=== PATIENT | female | born 2000 | race Caucasian/White ===

== ENCOUNTER 2021-03-11 10:40 | Outpatient (RCR) | payer BC, SELFPAY | END 2021-04-15 23:59 | LOC: IMMUN 10:40 | PROVIDERS: Visit Provider Family Medicine | DX: Z23 Encounter for immunization (principal) | CPT/HCPCS: 0001A; 91300 ==

== ENCOUNTER → 2022-09-29 | Outpatient (CLI) | payer BC, SELFPAY ==
[2022-09-29 15:25] LABS: Absolute Lymphocyte Count 2.58 X10^3/uL (0.83-4.51); Absolute Neutrophil Count 3.6 X10^3/uL (2.0-7.7); Basophil# 0.01 X10^3/uL; Basophil% 0.1 % (0-1); Eosinophil# 0.13 X10^3/uL; Eosinophils% 1.9 % (0-5); Hematocrit 39.8 % (37-47); Lymphocyte # 2.58 X10^3/ul (0.83-4.51); Lymphocyte % 37.3 % (19-41); Mean Corp Hgb Conc 32.7 g/dL (32-36); Mean Corpuscular Hgb 30.3 pg (27.0-32.0); Mean Corpuscular Volume 92.8 fL (81-99); Mean Platelet Vol. 10.2 fl (6.2-12.0); Monocyte# 0.56 X10^3/uL; Monocyte% 8.1 % (0-10); NRBC Flagged by Analyzer 0 % (0-5); Neutrophil # 3.63 X10^3/uL (2.7-7.7); Neutrophil % 52.5 % (47-70); Platelet Count 277 K/mm3 (150-450); RBC Distribution Width CV 13.6 % (11.6-14.6); RBC Distribution Width SD 46.7 fl (35.1-43.9); Red Blood Count 4.29 M/mm3 (4.2-5.4); White Blood Count 6.9 K/mm3 (4.4-11.0)
[2022-09-29 15:49] LABS: Erythrocyte Sedimentation Rate 13 mm/hr (0-30)
[2022-09-29 15:55] LABS: ALB/GLOB Ratio 0.9 RATIO (0.9-2.4); AST(SGOT) 22 U/L (15-37); Alanine Aminotransfer ALT/SGPT 24 U/L (13-56); Alkaline Phosphatase 78 U/L (45-117); Anion Gap 4 (5-15); BUN 15 mg/dL (7-18); BUN/Creat Ratio 17.8 RATIO (10-20); CRP < 2.90 mg/L (0.0-3.0); Calcium,Total 9.2 mg/dL (8.5-10.1); Chloride 104 mmol/L (98-107); Creatinine, Serum 0.84 mg/dL (0.55-1.02); EST Glomerular Filtration Rate 90 mL/min (>60); Est Glom Filt Rate - Afr Amer 109 mL/min (>60); Ferritin 25 ng/mL (8-252); Globulin 4.3 g/dL (2.2-4.2); Glucose 98 mg/dL (74-106); Iron 69 ug/dL (50-170); Iron Binding Capacity,Total 363 ug/dL (250-450); Potassium 4.1 mmol/L (3.5-5.1); Protein, Total 8.3 g/dL (6.4-8.2); Sodium Level 138 mmol/L (136-145)
[2022-09-29 16:02] LABS: Thyroid Stim Hormone (TSH) 1.83 uIU/mL (0.358-3.74)
== END | disposition home or self-care (01) ==
LOC: LAB 14:51
PROVIDERS: Referring Provider Nurse Practitioner Adult Health; Visit Provider Nurse Practitioner Adult Health
DX: R14.0 Abdominal distension (gaseous) (principal); R10.9 Unspecified abdominal pain
CPT/HCPCS: 36415; 80053; 82728; 83540; 83550; 84443; 85025; 85652; 86140

== ENCOUNTER → 2022-10-05 | Outpatient (CLI) | payer BC, SELFPAY ==
[2022-10-08 13:40] LABS: H. PYLORI STOOL AG Negative (Negative)
[2022-10-10 11:51] LABS: Calprotectin, Stool <16 ug/g (0-120)
== END | disposition home or self-care (01) ==
LOC: LABSPEC 12:18
PROVIDERS: Visit Provider Nurse Practitioner Adult Health
DX: R14.0 Abdominal distension (gaseous) (principal); R10.9 Unspecified abdominal pain; K58.9 Irritable bowel syndrome, unspecified
CPT/HCPCS: 83630; 83993; 87338

== ENCOUNTER → 2022-10-31 | Outpatient (CLI) | payer BC, SELFPAY ==
--- NOTE | 2022-10-31 07:59 | CT_ITS ---
STUDY: CT ABDOMEN AND PELVIS WITH CONTRAST REASON FOR EXAM: Female, 22 years old. Lower abdominal pain with bloating and diarrhea. Abdominal cramps. RADIATION DOSAGE (If Supplied By Facility): CTDIvol = ( 12.87 ) mGy, DLP = ( 633.44 ) mGycm TECHNIQUE: Transaxial images were obtained from the dome of the diaphragm to the symphysis pubis with oral contrast. Oral and IV Readi-CAT and 100mL Isovue-300 was administered. Sagittal and coronal images were reconstructed. Individualized dose optimization techniques were used for this CT. COMPARISON: None. FINDINGS: The visualized lung bases are unremarkable. The visualized portions of the heart are within normal limits. Normal liver. Normal gallbladder and extrahepatic biliary system. Normal spleen. Normal pancreas. Normal bilateral adrenal glands. There is a 1.17 m cyst in the mid lateral aspect of the right kidney. Normal left kidney. There is a small hiatal hernia. Normal small intestine. Large amount of fecal material is seen throughout the colon. The appendix is visualized and appears normal. Normal abdominal aorta. Normal inferior vena cava. Normal retroperitoneum. Normal urinary bladder. Small follicles are seen in the left ovary. Normal abdominal wall. Normal osseous structures. CT/Abdomen/Pelvis WITH Contrast IMPRESSION: Large amount of fecal material is seen throughout the colon. Small right renal cyst. Electronically Signed: Manuel Núñez MD at 8:51 EST ,
== END | disposition home or self-care (01) ==
LOC: CT 07:58
PROVIDERS: Visit Provider Nurse Practitioner Adult Health
DX: K44.9 Diaphragmatic hernia without obstruction or gangrene (principal); K55.9 Vascular disorder of intestine, unspecified; R14.0 Abdominal distension (gaseous); R19.7 Diarrhea, unspecified; N28.1 Cyst of kidney, acquired
CPT/HCPCS: 74177; Q9967

== ENCOUNTER 2023-06-25 11:57 | Emergency (ER) | payer BC, SELFPAY ==
[2023-06-25 11:58] VITALS: BP 98/63; PULSE 110; RESP 18; TEMP 36; O2SAT 100
--- NOTE | 2023-06-25 12:34 | EKG12_ITS ---
Test Reason : SYNCOPE Blood Pressure : / mmHG Vent. Rate : 091 BPM Atrial Rate : 091 BPM P-R Int : 150 ms QRS Dur : 076 ms QT Int : 358 ms P-R-T Axes : 053 087 033 degrees QTc Int : 440 ms Normal sinus rhythm Indeterminate axis Borderline ECG Confirmed by JOMAR TAPIA, MIKALA ([id number]), purchasing expeditor ODILIA ESCAMILLA ([id number]) on 06/29/2023 11:30:55 AM Referred By: Confirmed By:MIKALA HADLEY MD
--- NOTE | 2023-06-25 12:43 | EX.ED.DYSGE1 ---
HPI <DAHIANA Felix - Last Filed: 06/25/23 14:45> History of Present Illness Chief Complaint: Syncope Narrative Narrative: Patient presenting today due to a syncopal episode that occurred this morning. She reports that she played in a soccer tournament yesterday and did not feel well while she was playing, she reports that she went home and began to feel nauseous, had a headache, and had a temperature of 102 ?F. She began having chills, sweats, and felt fatigued and weak. She went to urgent care this morning to be evaluated and had a syncopal episode while the provider was examining her. She did not fall or hit her head, there was no seizure-like activity. She was sent here for evaluation. She reports that she has had syncopal episodes in the past and has been evaluated by chief security officer and was told that this was likely vasovagal. She denies any abdominal pain, vomiting, urinary symptoms, diarrhea, chest pain, and shortness of breath. She denies a PMH of any chronic health conditions. PFSH <DAHIANA Felix - Last Filed: 06/25/23 14:45> PFSH Medical History Abdominal pain Asthma Bloating Diarrhea Home Medications dicyclomine 20 mg tablet 20 mg PO BID PRN abdominal pain #60 tabs 09/29/22 [Rx Last Taken Unknown] norethindrone (contraceptive) 0.35 mg tablet 0.35 mg PO DAILY 09/29/22 [History Last Taken Unknown] ondansetron 4 mg disintegrating tablet 4 mg PO Q8H PRN PRN Nausea #10 tabs 06/25/23 [Rx Last Taken Unknown] Allergy/AdvReac Type Severity Reaction Status Date / Time No Known Allergies Allergy Verified 06/25/23 11:59 Family History Mother Strabismus Surgical History S/P ACL surgery Social History Smoking Status: Never smoker alcohol intake: never substance use type: does not use ROS <DAHIANA Felix - Last Filed: 06/25/23 14:45> ROS ED Constitutional Constitutional ED: Reports chills, fever(s) and sweats Cardiovascular Cardiovascular: Denies chest pain Respiratory/Chest Respiratory/Chest: Denies cough or dyspnea Gastrointestinal Gastrointestinal: Reports nausea; Denies abdominal pain, constipation, diarrhea or vomiting Genitourinary Genitourinary ED: Denies dysuria, hematuria or urinary urgency Musculoskeletal Musculoskeletal: Denies arthralgias or myalgias Integumentary Denies rash Neurologic Neurologic: Reports headache(s) and weakness EXAM <DAHIANA Felix - Last Filed: 06/25/23 14:45> Physical Exam Const Vital Signs: 06/25/23 11:58 Temperature 96.8 F L Temperature Source Temporal Pulse Rate 110 H Respiratory Rate 18 Blood Pressure 98/63 Blood Pressure Mean 74 Pulse Ox 100 Oxygen Delivery Method Room Air Positive well nourished, well developed and no apparent distress General Appearance ED: well developed HEENT Reports normocephalic and head/scalp atraumatic Mouth ED: Yes moist mucous membranes normal Eyes PERRL and EOMs intact bilaterally Neck full ROM and supple Chest Wall inspection of chest normal Resp normal respiratory effort and clear to auscultation bilaterally Cardio regular rate and regular rhythm GI soft to palpation, non-tender, non-distended and no masses Back/Spine normal ROM and normal to inspection Extremity normal to inspection and full ROM Neuro oriented x3, CN's II-XII intact bilaterally, moves all extremities, no focal motor deficits and no sensory deficits noted Sensorium / Orientation: awake and alert Psych mental status grossly normal and thought process normal Skin no rashes or lesions noted and no wounds <Dr. Darrin Russo MD - Last Filed: 06/25/23 14:47> Physical Exam Const Vital Signs: 06/25/23 11:58 Temperature 96.8 F L Temperature Source Temporal Pulse Rate 110 H Respiratory Rate 18 Blood Pressure 98/63 Blood Pressure Mean 74 Pulse Ox 100 Oxygen Delivery Method Room Air MDM <DAHIANA Felix - Last Filed: 06/25/23 14:45> [facility] MDM Narrative Medical decision making narrative: Patient presenting due to a syncopal episode that occurred this morning. Last night she developed a fever, had sweats, chills, she feels weak, fatigued, nauseous, and has a headache. She is well-appearing and in no acute distress, she is a little tachycardic but otherwise vitals are unremarkable. She reports feeling dehydrated, she will be given IV fluids and Zofran. EKG will be obtained. COVID and flu swabs will be obtained and are negative. Patient reports some improvement of her symptoms after treatment. She will be given a prescription for Zofran. Patient likely has a viral illness. She has been given supportive care measures and is to alternate Tylenol and ibuprofen for fever. She is to follow-up with her PCP and has been given return instructions. She will be discharged home in stable condition and is comfortable with plan. I have personally performed a face to face assessment of the patient and have reviewed the ANABELLE Note. I performed a substantive portion of the visit including all aspects of the following. My mistry findings include: History is remarkable for viral-like symptoms with fever. Patient's been playing soccer this weekend. 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 Patient states Tmax was 102.0 ?F. She had a syncopal episode. She believes she is hydrated. Exam is remarkable for tachycardia. She appears flushed. She is warm to touch. HEENT exam is unremarkable. Neck is supple. Lungs are clear auscultation. Heart is rapid and regular. There is no murmur, gallop or rub. Abdomen is benign. Dermatologic exam is positive for her being flushed. There is no petechiae or purpura noted. Medical Decision Making suspect patient has viral illness. With her having single episode and possibly dehydrated IV fluids were administered. Other additions or changes: [None] EKG Initial EKG: Comments: 91 bpm, normal sinus rhythm, no ST elevation, reviewed and interpreted by attending ED physician <Dr. Darrin Russo MD - Last Filed: 06/25/23 14:47> [facility] MDM Narrative Medical decision making narrative: Patient presenting due to a syncopal episode that occurred this morning. Last night she developed a fever, had sweats, chills, she feels weak, fatigued, nauseous, and has a headache. She is well-appearing and in no acute distress, she is a little tachycardic but otherwise vitals are unremarkable. She reports feeling dehydrated, she will be given IV fluids and Zofran. EKG will be obtained. COVID and flu swabs will be obtained. I have personally performed a face to face assessment of the patient and have reviewed the ANABELLE Note. I performed a substantive portion of the visit including all aspects of the following. My mistry findings include: History is remarkable for viral-like symptoms with fever. Patient's been playing soccer this weekend. 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 Patient states Tmax was 102.0 ?F. She had a syncopal episode. She believes she is hydrated. Exam is remarkable for tachycardia. She appears flushed. She is warm to touch. HEENT exam is unremarkable. Neck is supple. Lungs are clear auscultation. Heart is rapid and regular. There is no murmur, gallop or rub. Abdomen is benign. Dermatologic exam is positive for her being flushed. There is no petechiae or purpura noted. Medical Decision Making suspect patient has viral illness. With her having single episode and possibly dehydrated IV fluids were administered. Other additions or changes: [None] EKG Initial EKG: Attestation: I personally reviewed and interpreted this EKG as follows: Interpretation: Sinus Rhythm (Rate is 91. ID interval is 150 ms. QRS duration 76 ms. QT duration 358 ms. [place] is indeterminate. EKG is otherwise unremarkable.) Discharge Plan Triage Chief Complaint: Syncope ED Midlevel Provider: Gena Wright ED Provider: Darrin Russo Dx/Rx/DC Orders Clinical Impression: Syncope, Viral syndrome, Sinus tachycardia Instructions: ED Fainting, Vagal Reaction, ED Viral Syndrome (Adult) Prescriptions: New ondansetron 4 mg tablet,disintegrating 4 mg PO Q8H PRN PRN (Reason: Nausea) Qty: 10 0RF No Action norethindrone (contraceptive) 0.35 mg tablet 0.35 mg PO DAILY dicyclomine 20 mg tablet 20 mg PO BID PRN (Reason: abdominal pain) Qty: 60 0RF Primary Care Provider: Care Physician,No Primary Referrals: Care Physician,No Primary [Primary Care Provider] - Activity Restrictions/Additional Instructions: Please follow-up with your PCP and return for any worsening of your symptoms. Disposition Disposition: Home, Self Care
[2023-06-25] MEDS: 0.9% Normal Saline 1,000 ML 999 ML IV (13:34)
[2023-06-25] MEDS: Ondansetron 4 MG/2 ML Vial IV (13:35)
[2023-06-25 13:36] VITALS: BMI 26.6
[2023-06-25 14:46] VITALS: BP 134/78; PULSE 64; RESP 14; TEMP 36.4; O2SAT 98
--- NOTE | 2023-06-25 16:56 | EX.ED.DYSGE1 ---
HPI History of Present Illness Chief Complaint: Syncope [facility] Medical History Abdominal pain Asthma Bloating Diarrhea Home Medications dicyclomine 20 mg tablet 20 mg PO BID PRN abdominal pain #60 tabs 09/29/22 [Rx Last Taken Unknown] norethindrone (contraceptive) 0.35 mg tablet 0.35 mg PO DAILY 09/29/22 [History Last Taken Unknown] ondansetron 4 mg disintegrating tablet 4 mg PO Q8H PRN PRN Nausea #10 tabs 06/25/23 [Rx Last Taken Unknown] Allergy/AdvReac Type Severity Reaction Status Date / Time No Known Allergies Allergy Verified 06/25/23 11:59 Family History Mother Strabismus Surgical History S/P ACL surgery Social History Smoking Status: Never smoker alcohol intake: never substance use type: does not use EXAM Physical Exam Const Vital Signs: 06/25/23 11:58 06/25/23 14:46 Temperature 96.8 F L 97.6 F L Temperature Source Temporal Pulse Rate 110 H 64 Respiratory Rate 18 14 Blood Pressure 98/63 134/78 H Blood Pressure Mean 74 Pulse Ox 100 98 Oxygen Delivery Method Room Air [facility] EKG Initial EKG: Comments: 91 bpm, normal sinus rhythm, no ST elevation Discharge Plan Triage Chief Complaint: Syncope ED Midlevel Provider: Gena Wright ED Provider: Darrin Russo Dx/Rx/DC Orders Clinical Impression: Syncope, Viral syndrome, Sinus tachycardia Instructions: ED Fainting, Vagal Reaction, ED Viral Syndrome (Adult) Prescriptions: New ondansetron 4 mg tablet,disintegrating 4 mg PO Q8H PRN PRN (Reason: Nausea) Qty: 10 0RF No Action norethindrone (contraceptive) 0.35 mg tablet 0.35 mg PO DAILY dicyclomine 20 mg tablet 20 mg PO BID PRN (Reason: abdominal pain) Qty: 60 0RF Primary Care Provider: Care Physician,No Primary Referrals: Care Physician,No Primary [Primary Care Provider] - Activity Restrictions/Additional Instructions: Please follow-up with your PCP and return for any worsening of your symptoms. Disposition Disposition: Home, Self Care Discharge Date/Time: 06/25/23 14:52
== END 2023-06-25 14:52 | disposition home or self-care (01) ==
PROVIDERS: Emergency Provider Emergency Medicine; Visit Provider Emergency Medicine
DX: R55 Syncope and collapse (principal); B34.9 Viral infection, unspecified; R00.0 Tachycardia, unspecified
CPT/HCPCS: 87428; 93005; 96361; 96374; 99283; J2405